=== PATIENT | male | born 1985 | race Caucasian/White ===

== ENCOUNTER 2017-04-11 07:58 | Emergency (ER) | payer SELFPAY ==
[~2017-04-11] VITALS: Ht 180.3 cm; Wt 99.8 kg
[2017-04-11 07:58] VITALS: BP_SYST 163
[2017-04-11] MEDS ORDERED: cloNIDine HCL 0.1 MG TABLET PO ONE (08:15)
[2017-04-11 09:54] VITALS: BP_SYST 167
== END 2017-04-11 09:53 ==
LOC: SED 07:58
DX: Z02.89 Encounter for other administrative examinations (principal); M79.662 Pain in left lower leg; R03.0 Elevated blood-pressure reading, without diagnosis of hypertension
CPT/HCPCS: 93970; 99284